=== PATIENT | male | born 1980 | race African-American/Black ===

== ENCOUNTER 2016-10-05 10:58 | Emergency (ER) | payer SELFPAY ==
[~2016-10-05] VITALS: Ht 172.7 cm; Wt 98.1 kg
[~2016-10-05 10:58] MED LIST: CYCL5TAB PO
[2016-10-05 11:02] VITALS: BP 132/73
[2016-10-05] MEDS ORDERED: HYDROmorphone 1 MG/ML, 1ML IM ONE (11:30)
[2016-10-05] MEDS ORDERED: KETOROLAC 30 MG/1 ML IM ONE (11:30)
[2016-10-05] MEDS ORDERED: HYDROmorphone 1 MG/ML, 1ML ONE (11:33)
[2016-10-05] MEDS ORDERED: KETOROLAC 30 MG/1 ML ONE (11:34)
== END 2016-10-05 13:03 | disposition home or self-care (01) ==
LOC: ED 12:27
DX: M54.16 Radiculopathy, lumbar region (principal); F17.200 Nicotine dependence, unspecified, uncomplicated
CPT/HCPCS: 96372; 99284; J1170; J1885

== ENCOUNTER 2016-11-04 07:58 | Emergency (ER) | payer SELFPAY ==
[~2016-11-04] VITALS: Ht 172.7 cm; Wt 96.0 kg
[2016-11-04] MEDS ORDERED: OXYcodone/APAP 5/325MG TABLET PO ONE (08:30)
[2016-11-04] MEDS ORDERED: KETOROLAC 30 MG/1 ML IM ONE (08:30)
[2016-11-04] MEDS ORDERED: DIAZEPAM 5 MG TABLET PO ONE (08:30)
[2016-11-04] MEDS ORDERED: KETOROLAC 30 MG/1 ML ONE (10:16)
[2016-11-04] MEDS ORDERED: OXYcodone/APAP 5/325MG TABLET ONE (10:16)
[2016-11-04] MEDS ORDERED: DIAZEPAM 5 MG TABLET ONE (10:16)
[2016-11-04 11:14] VITALS: BP 96/54
== END 2016-11-04 11:17 | disposition home or self-care (01) ==
LOC: ED 11:00
DX: S76.011A Strain of muscle, fascia and tendon of right hip, initial encounter (principal); S76.111A Strain of right quadriceps muscle, fascia and tendon, initial encounter; G89.11 Acute pain due to trauma; Z87.891 Personal history of nicotine dependence; X58.XXXA Exposure to other specified factors, initial encounter; Y93.89 Activity, other specified; Y92.89 Other specified places as the place of occurrence of the external cause; Y99.8 Other external cause status
CPT/HCPCS: 96372; 99283; J1885

== ENCOUNTER 2017-02-18 16:47 | Emergency (ER) | payer OTHER ==
[~2017-02-18] VITALS: Ht 172.7 cm; Wt 100.0 kg
[2017-02-18 16:54] VITALS: BP 140/81
[2017-02-18] MEDS ORDERED: DIAZEPAM 5 MG TABLET PO ONE (17:30)
[2017-02-18] MEDS ORDERED: KETOROLAC 30 MG/1 ML IM ONE ×2 (17:30→18:30)
[2017-02-18] MEDS ORDERED: METHOCARBAMOL 750 MG TABLET PO ONE (18:30)
[2017-02-18] MEDS ORDERED: DIAZEPAM 5 MG TABLET ONE (18:36)
[2017-02-18] MEDS ORDERED: KETOROLAC 30 MG/1 ML ONE (18:36)
== END 2017-02-18 19:41 | disposition home or self-care (01) ==
LOC: ED 19:10
DX: M54.41 Lumbago with sciatica, right side (principal)
CPT/HCPCS: 96372; 99283; J1885

== ENCOUNTER 2017-05-09 15:02 | Emergency (ER) | payer OTHER ==
[~2017-05-09] VITALS: Ht 172.7 cm; Wt 97.3 kg
[2017-05-09 15:05] VITALS: BP 129/80
[2017-05-09 16:13] LABS: RAPID INFLUENZA A Negative (Negative); RAPID INFLUENZA B Negative (Negative)
== END 2017-05-09 17:50 | disposition home or self-care (01) ==
LOC: ED 17:40
DX: B34.9 Viral infection, unspecified (principal)
CPT/HCPCS: 87400; 99284

== ENCOUNTER 2017-06-08 12:25 | Emergency (ER) | payer OTHER ==
[~2017-06-08] VITALS: Ht 172.7 cm; Wt 98.7 kg
[2017-06-08 12:28] VITALS: BP 144/79
[2017-06-08] MEDS ORDERED: HYDROmorphone 2 MG/ML, 1ML ONE (12:49)
[2017-06-08] MEDS ORDERED: HYDROmorphone 1 MG/ML, 1ML IM ONE (13:00)
== END 2017-06-08 14:13 | disposition home or self-care (01) ==
LOC: ED 13:00
DX: M54.16 Radiculopathy, lumbar region (principal); M54.5 Low back pain; I10 Essential (primary) hypertension
CPT/HCPCS: 96372; 99283; J1170; J7512

== ENCOUNTER 2017-08-01 17:01 | Emergency (ER) | payer OTHER ==
[~2017-08-01] VITALS: Ht 172.7 cm; Wt 100.0 kg
[2017-08-01 17:03] VITALS: BP 143/87
[2017-08-01] MEDS ORDERED: KETOROLAC 30 MG/1 ML ONE (17:45)
[2017-08-01] MEDS ORDERED: METHOCARBAMOL 750 MG TABLET ONE (17:45)
[2017-08-01] MEDS ORDERED: KETOROLAC 60 MG/2 ML IM ONE (18:00)
[2017-08-01] MEDS ORDERED: METHOCARBAMOL 750 MG TABLET PO ONE (18:00)
== END 2017-08-01 18:36 | disposition home or self-care (01) ==
LOC: ED 18:05
DX: M54.42 Lumbago with sciatica, left side (principal); I10 Essential (primary) hypertension
CPT/HCPCS: 96372; 99283; J1885

== ENCOUNTER 2017-10-03 09:36 | Emergency (ER) | payer OTHER ==
[~2017-10-03] VITALS: Ht 172.7 cm; Wt 95.5 kg
[2017-10-03] MEDS ORDERED: METHOCARBAMOL 750 MG TABLET PO ONE (10:30)
[2017-10-03] MEDS ORDERED: KETOROLAC 60 MG/2 ML IM ONE (10:30)
[2017-10-03] MEDS ORDERED: KETOROLAC 30 MG/1 ML ONE (10:41)
[2017-10-03] MEDS ORDERED: METHOCARBAMOL 750 MG TABLET ONE (10:41)
[2017-10-03] MEDS ORDERED: LISI-167 PO (10:49)
[2017-10-03 11:33] VITALS: BP 114/70
== END 2017-10-03 11:35 | disposition home or self-care (01) ==
LOC: ED 11:30
DX: M54.42 Lumbago with sciatica, left side (principal); I10 Essential (primary) hypertension
CPT/HCPCS: 96372; 99283; J1885; J7512

== ENCOUNTER 2017-10-25 15:42 | Emergency (ER) | payer OTHER ==
[~2017-10-25] VITALS: Ht 172.7 cm; Wt 99.8 kg
[~2017-10-25 15:42] MED LIST changes: +LISI-167 PO
[2017-10-25 15:51] VITALS: BP 131/79
[2017-10-25] MEDS ORDERED: KETOROLAC 60 MG/2 ML IM ONE (16:00)
[2017-10-25] MEDS ORDERED: HYDROcodone/APAP 5/325 TABLET PO ONE (16:00)
[2017-10-25] MEDS ORDERED: HYDROcodone/APAP 5/325 TABLET ONE (16:02)
[2017-10-25] MEDS ORDERED: KETOROLAC 30 MG/1 ML ONE (16:03)
== END 2017-10-25 16:39 | disposition home or self-care (01) ==
LOC: ED 16:14
DX: S39.012A Strain of muscle, fascia and tendon of lower back, initial encounter (principal); M54.41 Lumbago with sciatica, right side; F17.200 Nicotine dependence, unspecified, uncomplicated; X58.XXXA Exposure to other specified factors, initial encounter; Y93.89 Activity, other specified; Y92.89 Other specified places as the place of occurrence of the external cause; Y99.8 Other external cause status
CPT/HCPCS: 96372; 99283; J1885; J7512

== ENCOUNTER 2017-12-14 09:33 | Emergency (ER) | payer OTHER ==
[~2017-12-14] VITALS: Ht 172.7 cm; Wt 95.8 kg
[2017-12-14 09:38] VITALS: BP 147/88
[2017-12-14] MEDS ORDERED: HYDROcodone/APAP 5/325 TABLET PO ONE (10:00)
[2017-12-14] MEDS ORDERED: ONDANSETRON ODT 4 MG PO ONE (10:00)
[2017-12-14] MEDS ORDERED: CYCLOBENZAPRINE 10 MG TABLET PO ONE (10:00)
[2017-12-14] MEDS ORDERED: KETOROLAC 30 MG/1 ML IM ONE (10:00)
[2017-12-14] MEDS ORDERED: KETOROLAC 30 MG/1 ML ONE (10:01)
[2017-12-14] MEDS ORDERED: HYDROcodone/APAP 5/325 TABLET ONE (10:01)
[2017-12-14] MEDS ORDERED: CYCLOBENZAPRINE 10 MG TABLET ONE (10:01)
[2017-12-14] MEDS ORDERED: ONDANSETRON ODT 4 MG ONE (10:01)
== END 2017-12-14 10:31 | disposition home or self-care (01) ==
LOC: ED 10:29
DX: M54.42 Lumbago with sciatica, left side (principal); I10 Essential (primary) hypertension
CPT/HCPCS: 96372; 99284; J1885; Q0162

== ENCOUNTER 2018-04-20 17:13 | Emergency (ER) | payer OTHER ==
[~2018-04-20] VITALS: Ht 172.7 cm; Wt 96.4 kg
[2018-04-20 17:15] VITALS: BP 143/84
[2018-04-20] MEDS ORDERED: HYDROcodone/APAP 5/325 TABLET ONE (17:54)
[2018-04-20] MEDS ORDERED: DIAZEPAM 5 MG TABLET ONE (17:54)
[2018-04-20] MEDS ORDERED: DIAZEPAM 5 MG TABLET PO ONE (18:00)
[2018-04-20] MEDS ORDERED: HYDROcodone/APAP 5/325 TABLET PO ONE (18:00)
--- NOTE | 2018-04-20 18:18 | NUR ---
PT EDUCATED REGARDING MEDICATIONS. PT STATES "SOMEONE IS COMING TO PICK ME UP."
[2018-04-20] MEDS ORDERED: KETOROLAC 30 MG/1 ML ONE (18:19)
--- NOTE | 2018-04-20 18:27 | NUR ---
Patient/Caregiver given discharge instructions and they have confirmed that they understand the instructions. Patient ambulatory with steady gait. PT LEFT WITH ALL PERSONAL BELONGINGS.
[2018-04-20] MEDS ORDERED: KETOROLAC 30 MG/1 ML IM ONE (18:30)
== END 2018-04-20 18:29 | disposition home or self-care (01) ==
LOC: ED 18:20
DX: M54.42 Lumbago with sciatica, left side (principal); I10 Essential (primary) hypertension; F17.200 Nicotine dependence, unspecified, uncomplicated
CPT/HCPCS: 96372; 99283; J1885

== ENCOUNTER 2018-06-30 15:07 | Emergency (ER) | payer OTHER ==
[~2018-06-30] VITALS: Ht 172.7 cm; Wt 95.0 kg
[2018-06-30 15:17] VITALS: BP 124/78
--- NOTE | 2018-06-30 15:41 | NUR ---
LEFT SCIATICA TYPE PAIN RADIATING DOWN LEFT LEG SINCE YESTERDAY
[2018-06-30] MEDS ORDERED: HYDROcodone/APAP 5/325 TABLET PO STA (16:04)
[2018-06-30] MEDS ORDERED: KETOROLAC 30 MG/1 ML ONE (16:16)
[2018-06-30] MEDS ORDERED: DIAZEPAM 5 MG TABLET ONE (16:16)
[2018-06-30] MEDS ORDERED: HYDROcodone/APAP 5/325 TABLET ONE (16:16)
[2018-06-30] MEDS ORDERED: KETOROLAC 60 MG/2 ML IM ONE (16:30)
[2018-06-30] MEDS ORDERED: DIAZEPAM 5 MG TABLET PO ONE (16:30)
--- NOTE | 2018-06-30 16:48 | NUR ---
PT STATES PAIN IMPROVED SINCE MEDICATED FOR SAME. AMBULATED TO DISCHARGE WITHOUT ASSITANCE, STEADY GAIT
== END 2018-06-30 16:51 | disposition home or self-care (01) ==
LOC: ED 16:45
DX: S39.012A Strain of muscle, fascia and tendon of lower back, initial encounter (principal); M54.42 Lumbago with sciatica, left side; F17.200 Nicotine dependence, unspecified, uncomplicated; I10 Essential (primary) hypertension
CPT/HCPCS: 96372; 99283; J1885

== ENCOUNTER 2019-02-02 13:07 | Emergency (ER) | payer OTHER ==
[~2019-02-02] VITALS: Ht 172.7 cm; Wt 98.4 kg
[2019-02-02 13:15] VITALS: BP 164/83
[2019-02-02] MEDS ORDERED: METHOCARBAMOL 750 MG TABLET PO ONE (14:00)
[2019-02-02] MEDS ORDERED: IBUPROFEN 800 MG TABLET PO ONE (14:00)
[2019-02-02] MEDS ORDERED: METHOCARBAMOL 750 MG TABLET ONE (14:15)
[2019-02-02] MEDS ORDERED: IBUPROFEN 800 MG TABLET ONE (14:15)
--- NOTE | 2019-02-02 14:50 | NUR ---
Patient/Caregiver given discharge instructions and they have confirmed that they understand the instructions. Patient ambulatory with steady gait USING PERSONAL CRUTCHES. PT LEFT WITH ALL PERSONAL BELONGINGS.
== END 2019-02-02 14:51 | disposition home or self-care (01) ==
LOC: ED 14:30
DX: M54.42 Lumbago with sciatica, left side (principal); I10 Essential (primary) hypertension
CPT/HCPCS: 99284; J7512

== ENCOUNTER 2019-02-14 07:41 | Emergency (ER) | payer OTHER ==
[~2019-02-14] VITALS: Ht 172.7 cm; Wt 100.0 kg
[2019-02-14] MEDS ORDERED: DIAZEPAM 5 MG TABLET PO ONE (08:30)
[2019-02-14] MEDS ORDERED: KETOROLAC 30 MG/1 ML IM ONE (08:30)
--- NOTE | 2019-02-14 08:56 | NUR ---
PT RETURNED FROM XRAY
[2019-02-14] MEDS ORDERED: DIAZEPAM 5 MG TABLET ONE (08:59)
[2019-02-14] MEDS ORDERED: KETOROLAC 60 MG/2 ML ONE (09:00)
[2019-02-14 09:07] VITALS: BP 137/92
--- NOTE | 2019-02-14 09:08 | NUR ---
PT MEDICATED PER MAR
== END 2019-02-14 09:43 | disposition home or self-care (01) ==
LOC: ED 08:01
DX: M54.16 Radiculopathy, lumbar region (principal); I10 Essential (primary) hypertension
CPT/HCPCS: 72110; 96372; 99283; J1885; J7512

== ENCOUNTER 2019-07-08 08:10 | Emergency (ER) | payer OTHER ==
[~2019-07-08] VITALS: Ht 172.7 cm; Wt 99.0 kg
[2019-07-08 08:11] VITALS: BP 138/73
--- NOTE | 2019-07-08 08:18 | NUR ---
PT AMBULATED TO ROOM WITH TECH. STEADY GAIT.
--- NOTE | 2019-07-08 08:19 | NUR ---
PT HAS C/O OF LEFT SCIATICA PAIN SINCE YESTERDAY. HX OF SCIATICA. DENIES TRAUMA TO AREA. PT STATES BEEN APPLYING ICE AND HEAT TO AREA. Addendum: 07/08/19 at 0820 by NEMO PT HAS C/O OF LEFT SCIATICA PAIN SINCE YESTERDAY. HX OF SCIATICA. DENIES TRAUMA TO AREA. PT STATES BEEN APPLYING ICE AND HEAT TO AREA. PT DENIES INCONTINENCE. DENIES F/C. DENIES V/D.
[2019-07-08] MEDS ORDERED: METO25TA35 PO (08:22)
[2019-07-08] MEDS ORDERED: KETOROLAC 30 MG/1 ML ONE (08:28)
[2019-07-08] MEDS ORDERED: CYCLOBENZAPRINE 10 MG TABLET ONE (08:28)
[2019-07-08] MEDS ORDERED: ONDANSETRON ODT 8 MG ONE (08:28)
[2019-07-08] MEDS ORDERED: OXYcodone/APAP 5/325MG TABLET ONE (08:28)
[2019-07-08] MEDS ORDERED: KETOROLAC 30 MG/1 ML IM ONE (08:30)
[2019-07-08] MEDS ORDERED: OXYcodone/APAP 5/325MG TABLET PO ONE (08:30)
[2019-07-08] MEDS ORDERED: ONDANSETRON ODT 8 MG PO ONE (08:30)
[2019-07-08] MEDS ORDERED: CYCLOBENZAPRINE 10 MG TABLET PO ONE (08:30)
--- NOTE | 2019-07-08 08:31 | NUR ---
PT MEDICATED FOR 8/10 LEFT BUTTOCK PAIN.
--- NOTE | 2019-07-08 09:00 | NUR ---
PT DISCHARGED HOME IN A STABLE CONDITION. DC INSTRUCTIONS WERE DISCUSSED WITH PT. PT VERBALIZED UNDERSTANDING. NO FURTHER QUESTIONS OR COCERNS WERE EXPRESSED AT THAT TIME. PT AMBULATED WITH RN TO DC DESK. STEADY GAIT.
== END 2019-07-08 09:02 | disposition home or self-care (01) ==
LOC: ED 08:30
DX: M54.42 Lumbago with sciatica, left side (principal); I10 Essential (primary) hypertension
CPT/HCPCS: 96372; 99284; J1885; Q0162

== ENCOUNTER 2019-10-01 08:43 | Emergency (ER) | payer OTHER ==
[~2019-10-01] VITALS: Ht 172.7 cm; Wt 95.0 kg
[~2019-10-01 08:43] MED LIST changes: +METO25TA35 PO
[2019-10-01] MEDS ORDERED: HYDROcodone/APAP 5/325 TABLET PO ONE (09:30)
[2019-10-01] MEDS ORDERED: KETOROLAC 30 MG/1 ML IM ONE (09:30)
[2019-10-01] MEDS ORDERED: KETOROLAC 30 MG/1 ML ONE (09:31)
[2019-10-01] MEDS ORDERED: HYDROcodone/APAP 5/325 TABLET ONE (09:31)
--- NOTE | 2019-10-01 09:37 | NUR ---
Pt medicated for 10/10 L sciatic pain per MAR and provided water bottles per request. Pt denies other needs.
--- NOTE | 2019-10-01 10:25 | NUR ---
Pt states pain improved (4/10) after medications, ready for dc.
[2019-10-01 10:30] VITALS: BP 149/67
== END 2019-10-01 10:34 | disposition home or self-care (01) ==
LOC: ED 09:11
DX: M54.5 Low back pain (principal); M54.32 Sciatica, left side; F17.200 Nicotine dependence, unspecified, uncomplicated; I10 Essential (primary) hypertension
CPT/HCPCS: 96372; 99283; J1885

== ENCOUNTER 2020-05-30 21:17 | Emergency (ER) | payer OTHER ==
[~2020-05-30] VITALS: Ht 172.7 cm; Wt 99.7 kg
[2020-05-30 21:27] VITALS: BP 113/71
[2020-05-30] MEDS ORDERED: DEXAMETHASONE 4 MG TABLET ONE (22:36)
[2020-05-30] MEDS ORDERED: DEXAMETHASONE 4 MG TABLET PO ONE (23:00)
== END 2020-05-30 23:01 | disposition home or self-care (01) ==
LOC: ED 21:52
DX: H69.92 Unspecified Eustachian tube disorder, left ear (principal); J01.00 Acute maxillary sinusitis, unspecified; I10 Essential (primary) hypertension; R51.9 Headache, unspecified; R50.9 Fever, unspecified; F17.210 Nicotine dependence, cigarettes, uncomplicated
CPT/HCPCS: 99283; 99406

== ENCOUNTER 2020-09-10 12:14 | Emergency (ER) | payer OTHER ==
[~2020-09-10] VITALS: Ht 172.7 cm; Wt 95.0 kg
[2020-09-10 12:20] VITALS: BP 128/83
[2020-09-10] MEDS ORDERED: DIAZEPAM 5 MG TABLET ONE (12:46)
[2020-09-10] MEDS ORDERED: KETOROLAC 30 MG/1 ML ONE (12:46)
[2020-09-10] MEDS ORDERED: KETOROLAC 30 MG/1 ML IM ONE (13:00)
[2020-09-10] MEDS ORDERED: DIAZEPAM 5 MG TABLET PO ONE (13:00)
== END 2020-09-10 13:06 | disposition home or self-care (01) ==
LOC: ED 12:58
DX: S39.012A Strain of muscle, fascia and tendon of lower back, initial encounter (principal); I10 Essential (primary) hypertension; F17.210 Nicotine dependence, cigarettes, uncomplicated; X58.XXXA Exposure to other specified factors, initial encounter; Y93.89 Activity, other specified; Y92.89 Other specified places as the place of occurrence of the external cause; Y99.8 Other external cause status
CPT/HCPCS: 96372; 99283; J1885

== ENCOUNTER 2020-11-21 14:50 | Emergency (ER) | payer OTHER ==
[~2020-11-21] VITALS: Ht 172.7 cm; Wt 101.4 kg
[2020-11-21 15:08] VITALS: BP 134/81
--- NOTE | 2020-11-21 15:11 | NUR ---
engraver seals: pt drinking fluids in triage, advised to be NPO
--- NOTE | 2020-11-21 15:54 | NUR ---
PT PRESENT TO ED D/T L SCIATICA PAIN STARTING YESTERDAY. PT STATES HAS A "LONG HISTORY" OF SCIATICA PAIN. PT ABLE TO AMBULATE WITHOUT ANY ASSISTANCE.
[2020-11-21] MEDS ORDERED: LISI-170 PO (15:56)
[2020-11-21] MEDS ORDERED: DIAZEPAM 5 MG TABLET ONE (16:17)
[2020-11-21] MEDS ORDERED: KETOROLAC 30 MG/1 ML ONE (16:17)
--- NOTE | 2020-11-21 16:23 | NUR ---
PT MEDICATED PER EMAR.
[2020-11-21] MEDS ORDERED: DIAZEPAM 5 MG TABLET PO ONE (16:30)
[2020-11-21] MEDS ORDERED: KETOROLAC 30 MG/1 ML IM ONE (16:30)
--- NOTE | 2020-11-21 16:37 | NUR ---
PT STATES MEDICINE IS "KICKING IN." PT LAYING ON GURNEY WITH LIGHTS OFF. APPEARS TO BE MORE COMFORTABLE. VSS.
--- NOTE | 2020-11-21 16:43 | NUR ---
PT DISCHARGED HOME IN A STABLE CONDITION. DC INSTRUCTIONS DISCUSSED WITH PT. PT VERBALIZED UNDERSTANDING. NO FURTHER QUESTIONS OR CONCERNS EXPRESSED AT THAT TIME. PT GOT SELF DRESSED. PT AMBULATED WITH RN TO DC DESK. STEADY GAIT.
== END 2020-11-21 16:46 | disposition home or self-care (01) ==
LOC: ED 15:17
DX: S39.012A Strain of muscle, fascia and tendon of lower back, initial encounter (principal); I10 Essential (primary) hypertension; F17.210 Nicotine dependence, cigarettes, uncomplicated; X58.XXXA Exposure to other specified factors, initial encounter; Y93.89 Activity, other specified; Y92.89 Other specified places as the place of occurrence of the external cause; Y99.8 Other external cause status
CPT/HCPCS: 96372; 99283; J1885